=== PATIENT | male | born 1990 | race Caucasian/White ===

== ENCOUNTER 2023-11-19 17:52 | Emergency (ER) | payer OTHER, SELFPAY ==
[2023-11-19 17:58] VITALS: BP 132/84; PULSE 63; RESP 16; TEMP 36.8
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
== END 2023-11-19 19:34 | disposition home or self-care (01) ==
PROVIDERS: Emergency Provider Emergency Medicine
DX: S63.502A Unspecified sprain of left wrist, initial encounter (principal); V18.0XXA Pedal cycle driver injured in noncollision transport accident in nontraffic accident, initial encounter
CPT/HCPCS: 99284; 73110; 73130; 99283